=== PATIENT | female | born 1980 | race Asian ===

== ENCOUNTER 2019-10-11 07:11 | Emergency (ER) | payer OTHER ==
[~2019-10-11] VITALS: Ht 160 cm; Wt 79.2 kg
[2019-10-11] MEDS ORDERED: VITATAB74 PO (07:19)
[2019-10-11] MEDS ORDERED: IBUPROFEN 800 MG TAB PO ONE (07:45)
--- NOTE | 2019-10-11 09:50 | REP ---
Right ankle four views: There is a comminuted minimally displaced spiral fracture of the distal fibula. There is a transverse fracture at the base of the medial malleolus with one fourth shaft width medial displacement of the distal fracture fragment. The mortise appears symmetric. No posterior malleolar fracture is identified on these views. Mineralization is normal. There is circumferential soft tissue edema. Impression: Fractures of the distal fibula and medial malleolus as described. Electronically Signed by Martell Sears MD 10/11/2019 08:00 A
--- NOTE | 2019-10-11 09:51 | REP ---
Clinical: Trauma. Technique: AP and lateral views of the right tibia / fibula. Findings: There is a comminuted fracture of the distal fibular shaft with overlying soft tissue swelling. No subcutaneous emphysema or foreign body. Impression: Comminuted fracture of the distal fibular shaft. Electronically Signed by Abram Lopez MD 10/11/2019 08:03 A
--- NOTE | 2019-10-11 09:51 | REP ---
Right foot two views: Fractures of the distal fibula and medial malleolus are identified on the ankle series performed this same date. These fractures are better visualized on the ankle series films. No foot fracture or dislocation is identified on the two views provided. Mineralization joint spaces are normal. There are no calcifications or foreign bodies. Impression: Negative right foot. There are fractures of the distal fibula and medial malleolus on the ankle series performed this same date. Electronically Signed by Martell Sears MD 10/11/2019 08:03 A
[2019-10-11] MEDS ORDERED: PERCOCET 5MG/325MG TAB PO ONE (10:00)
--- NOTE | 2019-10-11 10:35 | REP ---
Clinical: Status post splinting. Technique: AP and lateral views of the right tibia / fibula. Findings: Medial malleolus fracture and oblique/spiral fracture of the distal fibular metadiaphysis with overlying soft tissue swelling again noted. Impression: Fibular and medial malleolar fractures . Electronically Signed by Abram Lopez MD 10/11/2019 10:27 A
--- NOTE | 2019-10-11 10:36 | REP ---
Clinical: Status post splinting. Technique: AP and lateral views of the right foot. Findings: Lateral view best demonstrates fractures of the distal fibular metadiaphysis along with medial malleolar fracture. Overlying soft tissue swelling. Impression: Distal fibular and medial malleolar fractures. Electronically Signed by Abram Lopez MD 10/11/2019 10:28 A
--- NOTE | 2019-10-11 10:41 | REP ---
RIGHT ANKLE: Four views. HISTORY: Post splint. Comparison is made with earlier radiographs. FINDINGS: Four views of the right ankle taken through overlying immobilization material demonstrate a comminuted obliquely oriented fracture through the distal fibular diaphysis and a horizontally oriented fracture through the medial malleolus. There is a posterior malleolar fracture as well visualized to better advantage on the current series. Ankle mortise is well aligned. There is some diastases and both the medial malleolar and distal fibular fractures essentially unchanged. IMPRESSION: Trimalleolar ankle fracture. Electronically Signed by Kevin Mejia MD 10/11/2019 10:54 A
[2019-10-11] MEDS ORDERED: NORC1TAB7 PO (11:15)
[2019-10-11 11:35] VITALS: BP 126/72
== END 2019-10-11 11:38 | disposition home or self-care (01) ==
LOC: M ED 07:11
DX: S82.451A Displaced comminuted fracture of shaft of right fibula, initial encounter for closed fracture (principal); S82.51XA Displaced fracture of medial malleolus of right tibia, initial encounter for closed fracture; X50.1XXA Overexertion from prolonged static or awkward postures, initial encounter; W00.9XXA Unspecified fall due to ice and snow, initial encounter; Y92.9 Unspecified place or not applicable; Y93.9 Activity, unspecified; Y99.9 Unspecified external cause status; F17.290 Nicotine dependence, other tobacco product, uncomplicated; Z79.899 Other long term (current) drug therapy